=== PATIENT | male | born 1985 | race African-American/Black ===

== ENCOUNTER 2024-12-23 21:23 | Emergency (ER) | payer SELFPAY ==
[~2024-12-23] VITALS: Ht 177.8 cm; Wt 95.0 kg
[2024-12-23 21:48] VITALS: O2SAT 95
[2024-12-23 22:25] VITALS: TEMP 37.1; O2SAT 99
[2024-12-23 22:33] VITALS: BP 130/82; PULSE 103; RESP 20
[2024-12-23] MEDS: MORPHINE SULFATE 4 MG/ML INJ (FOR IV/IM USE) IV STA (22:33)
[2024-12-23] MEDS: ONDANSETRON HCL 4MG/2ML INJ IV STA (22:33)
[2024-12-23] MEDS: SODIUM CHLORIDE 0.9% 1,000 ML IV ONE (22:34)
[2024-12-23] MEDS: TETANUS, DIPHTHERIA, PERTUSSIS VAC/PF 0.5ML (>10YR OLD) IM ONE (22:37)
[2024-12-23] MEDS: CEFAZOLIN 1000MG PREMIX 50 ML IV SCH (23:08)
[2024-12-23 23:15] LABS: BASOPHILS % 0.7 % (0.0-2.0); EOSINOPHILS % 0.4 % (0.0-5.0); HEMATOCRIT. 43.8 % (42.0-52.0); HEMOGLOBIN. 14.5 g/dL (14.0-18.0); MEAN CORPUSCULAR HEMOGLOBIN 29.7 pg (28.0-32.0); MEAN CORPUSCULAR HGB CONC 33.1 g/dL (31.0-37.0); MEAN CORPUSCULAR VOLUME 89.6 fL (80.0-94.0); MEAN PLATELET VOLUME 7.7 fl (7.4-10.4); NEUTROPHILS % 59.9 % (40.0-76.0); PLATELET 281 x1000/uL (130-400); RED BLOOD CELL COUNT 4.89 mill/uL (4.7-6.1); RED CELL DISTRIBUTION WIDTH 13.8 % (11.6-14.6)
[2024-12-23 23:24] LABS: CARBON DIOXIDE 24 mEq/L (21-32); CHLORIDE 110 mEq/L (98-107); POTASSIUM 3.9 mEq/L (3.5-5.1); SODIUM 143 mEq/L (136-145)
[2024-12-23 23:25] LABS: CALCIUM 8.8 mg/dL (8.7-10.4)
[2024-12-23 23:30] LABS: CREATININE 1.3 mg/dL (0.6-1.3); GLUCOSE 89 mg/dL (70-105); UREA NITROGEN BLOOD 13 mg/dL (9-23)
[2024-12-23 23:41] LABS: INR 0.9; PROTHROMBIN TIME 9.8 sec (9.6-11.0)
== END 2024-12-23 23:05 | disposition short-term general hospital (02) ==
LOC: ER 21:23
DX: S31.119A Laceration without foreign body of abdominal wall, unspecified quadrant without penetration into peritoneal cavity, initial encounter (principal); R10.2 Pelvic and perineal pain; Y08.89XA Assault by other specified means, initial encounter; Y93.89 Activity, other specified; Y92.89 Other specified places as the place of occurrence of the external cause; Y99.8 Other external cause status
CPT/HCPCS: 80048; 83690; 85025; 85610; 36415; 71045; 96361; 96365; 96375; 99285; J0690; J2405; J2270; J7030; Z7610